=== PATIENT | male | born 1945 | race African-American/Black ===

== ENCOUNTER 2018-05-22 06:49 | Day surgery (SDC) | payer MEDICARE ==
[~2018-05-22] VITALS: Ht 167.6 cm; Wt 65.8 kg
[~2018-05-22 06:49] MED LIST: CHOL20004 PO; CITA10TA9 PO; CLOP75TA16 PO; HYDR-523 PO; METH-375 PO; NITR0.4T SL; OMEP20CA10 PO; TRAM50TA3 PO
[2018-05-22] MEDS ORDERED: IODIXANOL 320MG/ML 100 ML BOTTLE IV ONE (08:00)
[2018-05-22] MEDS ORDERED: LIDOCAINE HCL 1% 20ML VIAL (Pyxis) INJ ONE (08:00)
[2018-05-22] MEDS ORDERED: FENTANYL CITRATE/PF 50MCG/ML 2ML VIAL ONE (09:08)
[2018-05-22] MEDS ORDERED: MIDAZOLAM HCL 2 MG/2 ML VIAL ONE (09:08)
[2018-05-22] MEDS ORDERED: COR12 PO (09:28)
[2018-05-22] MEDS ORDERED: HYDR-4135 PO (09:28)
[2018-05-22] MEDS ORDERED: ASPI-1159 PO (09:28)
[2018-05-22] MEDS ORDERED: CITA20TA75 PO (09:30)
[2018-05-22] MEDS ORDERED: LEVO50TA8 PO (09:30)
[2018-05-22] MEDS ORDERED: NIFE60TA64 PO (09:30)
[2018-05-22] MEDS ORDERED: AMI2 PO (09:30)
[2018-05-22] MEDS ORDERED: HYDRALAZINE 20MG/ML VIAL ONE (09:46)
[2018-05-22] MEDS ORDERED: NICARDIPINE 100MCG/ML 10ML VIAL (CATH LAB) IV ONE (10:00)
[2018-05-22] MEDS ORDERED: HEPARIN SODIUM 1,000 UNIT/1ML VIAL IV ONE (10:00)
[2018-05-22] MEDS ORDERED: NITROGLYCERIN 50MCG/ML 10ML VIAL (CATH LAB) IV ONE (10:00)
[2018-05-22] MEDS ORDERED: ACETAMINOPHEN 325MG TABLET PO PRN (10:15)
[2018-05-22] MEDS ORDERED: ATROPINE SULFATE 1MG/10ML SYR IV PRN (10:15)
[2018-05-22] MEDS ORDERED: ONDANSETRON HCL 4MG/2ML INJ IV PRN (10:15)
== END 2018-05-22 16:00 | disposition home or self-care (01) ==
LOC: CCL 06:49
PROVIDERS: ATTEND Specialist
DX: I25.119 Atherosclerotic heart disease of native coronary artery with unspecified angina pectoris (principal); Z95.1 Presence of aortocoronary bypass graft; I10 Essential (primary) hypertension
CPT/HCPCS: 93459; 99152; 99153; C1760; C1769; C1887; C1893; J0360; J1644; J2250; J3010; J3490; Q9967; G0500

== ENCOUNTER 2019-02-09 10:50 | Emergency (ER) | payer MEDICARE ==
[~2019-02-09] VITALS: Ht 165.1 cm; Wt 63.0 kg
[~2019-02-09 10:50] MED LIST changes: +AMI2 PO; +ASPI-1393 PO; -CITA10TA9 PO; +CITA20TA75 PO; -CLOP75TA16 PO; +CLOP75TA4 PO; +COR12 PO; +HYDR-4135 PO; +LEVO50TA8 PO; +NIFE60TA64 PO; -OMEP20CA10 PO; +OMEP20CA5 PO
[2019-02-09 15:41] VITALS: BP 99/60
== END 2019-02-09 17:39 | disposition left against medical advice (07) ==
LOC: ER 11:01
DX: R07.9 Chest pain, unspecified (principal); Z53.21 Procedure and treatment not carried out due to patient leaving prior to being seen by health care provider
CPT/HCPCS: 93005

== ENCOUNTER 2019-03-30 04:36 | Emergency (ER) | payer MEDICARE ==
[~2019-03-30] VITALS: Ht 167.6 cm; Wt 64.0 kg
[~2019-03-30 04:36] MED LIST changes: -ASPI-1393 PO; +ASPI-1497 PO; +NIFE-32 PO; -NIFE60TA64 PO; +OMEP20CA14 PO; -OMEP20CA5 PO
[2019-03-30] MEDS ORDERED: SODIUM CHLORIDE 0.9% 1,000 ML IV ONE (05:17)
[2019-03-30 06:03] LABS: CHLORIDE 110 mEq/L (98-107)
[2019-03-30 06:04] LABS: BASOPHILS % 0.5 % (0.0-2.0); EOSINOPHILS % 1.6 % (0.0-5.0); HEMATOCRIT. 30.6 % (42.0-52.0); HEMOGLOBIN. 10.2 g/dL (14.0-18.0); LYMPHOCYTES % 18.1 % (20.0-50.0); MEAN CORPUSCULAR HEMOGLOBIN 29.6 pg (28.0-32.0); MEAN CORPUSCULAR VOLUME 88.5 fL (80.0-94.0); MONOCYTES % 12.1 % (2.0-8.0); NEUTROPHILS % 67.7 % (40.0-76.0); PLATELET 206 x1000/uL (130-400); RED BLOOD CELL COUNT 3.46 mill/uL (4.7-6.1); RED CELL DISTRIBUTION WIDTH 13.1 % (11.6-14.6)
[2019-03-30 06:19] LABS: PARTIAL THROMBOPLASTIN TIME 30.3 sec (23.4-31.0); PROTHROMBIN TIME 10.8 sec (9.6-11.0)
[2019-03-30] MEDS ORDERED: MORPHINE SULFATE 4 MG/ML CPJ (NOT FOR IM USE) IV STA (06:34)
[2019-03-30] MEDS ORDERED: ONDANSETRON HCL 4MG/2ML INJ IV STA (06:34)
[2019-03-30 06:40] LABS: CLARITY URINE CLEAR (CLEAR); COLOR URINE YELLOW (YELLOW); KETONES URINE NEGATIVE (NEGATIVE); LEUKOCYTE ESTERASE URINE NEGATIVE (NEGATIVE); NITRITE URINE NEGATIVE (NEGATIVE); OCCULT BLOOD URINE NEGATIVE (NEGATIVE); PROTEIN URINE NEGATIVE (NEGATIVE); SPECIFIC GRAVITY URINE 1.013 (1.005-1.030); UROBILINOGEN URINE 0.2 E.U./dL (0.2-1.0)
[2019-03-30] MEDS ORDERED: MORPHINE SULFATE 4 MG/ML CPJ (NOT FOR IM USE) IV ONE (09:15)
[2019-03-30 09:52] VITALS: BP 179/76
== END 2019-03-30 09:51 | disposition home or self-care (01) ==
LOC: ER 04:36
DX: R10.13 Epigastric pain (principal); C34.91 Malignant neoplasm of unspecified part of right bronchus or lung; C79.89 Secondary malignant neoplasm of other specified sites; D64.9 Anemia, unspecified; R07.89 Other chest pain; I25.10 Atherosclerotic heart disease of native coronary artery without angina pectoris; I11.9 Hypertensive heart disease without heart failure; N28.9 Disorder of kidney and ureter, unspecified; Z87.891 Personal history of nicotine dependence; Z95.1 Presence of aortocoronary bypass graft; Z98.61 Coronary angioplasty status; Z79.899 Other long term (current) drug therapy; Z88.0 Allergy status to penicillin; Z88.8 Allergy status to other drugs, medicaments and biological substances
CPT/HCPCS: 36415; 71045; 71250; 74176; 80053; 81003; 83690; 83880; 84484; 85025; 85610; 85730; 87086; 93005; 96374; 96375; 96376; 99285; J2270; J2405; J7030